=== PATIENT | female | born 2000 | race African-American/Black ===

== ENCOUNTER 2022-03-15 23:07 | Emergency (ER) | payer OTHER, SELFPAY ==
--- NOTE | ~2022-03-15 | CT_ITS ---
EXAMINATION: CT BRAIN W/O DATE: 03/16/2022 00:38 INDICATION: Left posterior headache TECHNIQUE: Computed tomography (CT) of the head was performed without intravenous contrast. The dose- length product was 605.33 mGy-cm. Automated exposure control and iterative reconstruction technique w ere employed. COMPARISON: No prior studies for comparison. FINDINGS: Normal brain parenchymal volume for age. Normal ortiz-white differentiation. No acute intrac ranial hemorrhage, infarction, mass or mass effect. No ventriculomegaly or midline shift. Midline sagittal images demonstrate a normal corpus callosum, c raniovertebral junction and sella turcica. Basilar cisterns are patent. Paranasal sinuses and mastoids are pneumatized. No depressed skull fractures. IMPRESSION: 1. No acute intracranial abnormality. Reviewed, dictated and finalized at location A.
[2022-03-15 23:09] VITALS: BP 124/88; PULSE 85; RESP 14; TEMP 36.3; O2SAT 100
[2022-03-15 23:35] VITALS: BP 114/87; O2SAT 100
[2022-03-15 23:36] VITALS: O2SAT 100
[2022-03-15 23:45] VITALS: O2SAT 100
[2022-03-15 23:46] VITALS: BP 107/78; O2SAT 100
[2022-03-15 23:47] VITALS: O2SAT 100
--- NOTE | 2022-03-16 00:02 | ED.HA ---
HPI - Headache General Chief Complaint: Headache Stated Complaint: headache Time Seen by Provider: 03/15/22 23:28 Source: patient Mode of arrival: ambulatory Limitations: no limitations History of Present Illness HPI Narrative: Patient is a 21 y/o female who presents to the ED with c/o headaches. Patient reports having intermittent headaches behind her eyes and on her left sided head for the past couple weeks. She states the pain typically occurs any time she eats or drinks anything, after which she feels a strange cold sensation to her head. She also describes it as feeling underwater. The pain will persist intermittently after eating or drinking, but she states she does not think she would experience pain at all if she went w/o eating or drinking. No other known triggers. She has not taken anything for the pain over the last couple weeks. Denies vision changes, neck pain, fever, dizziness, lightheadedness, weakness, nausea, vomiting, difficulty swallowing, dental pain, otalgia, tinnitus, photophobia, phonophobia. Patient does have a Hx of migraines but states this feels different. Related Data Allergies Allergy/AdvReac Type Severity Reaction Status Date / Time No Known Allergies Allergy Verified 03/15/22 23:36 Review of Systems Review of Systems: CONSTITUTIONAL: Denies fever, chills, or sweats. EYES: Denies photophobia, visual changes. ENT: Denies phonophobia, rhinorrhea, congestion, sore throat, tinnitus, dental pain, or otalgia. CARDIOVASCULAR: Denies chest pain. RESPIRATORY: Denies cough or dyspnea. GASTROINTESTINAL: Denies abdominal pain, nausea, vomiting, or diarrhea. MUSCULOSKELETAL: Denies neck pain. NEUROLOGIC: Reports intermittent headaches. Denies dizziness, lightheadedness, numbness, or weakness. All systems reviewed & are unremarkable except as noted in HPI and below PMFSH Past Medical History Medical History (Updated 03/16/22 @ 01:46 by Melba Dumas PA-C) No pertinent past medical history Surgical History Surgical History (Updated 03/16/22 @ 01:42 by Melba Dumas PA-C) No pertinent past surgical history Social History Social History (Updated 03/16/22 @ 01:42 by Melba Dumas PA-C) Smoking status: Never smoker Exam Narrative: GENERAL: Well appearing, thin, non-toxic, in no acute distress. HEAD: Normocephalic, atraumatic. EYES: PERRL/EOMI, conjunctivae clear bilaterally. No nystagmus. NOSE: Normal, no drainage. EARS: TMS clear, with good light reflex. No erythema or bulging. THROAT: Pharynx clear, no exudate. MMs moist. No focal abscess, gum swelling, redness. NECK: Supple. No adenopathy, no masses. No meningeal signs. Full nonpainful range of motion. RESPIRATORY: Airway patent, respirations nonlabored. Clear to auscultation bilaterally, no rales, rhonchi, wheezing. CARDIOVASCULAR: Regular rate and rhythm without murmurs, rubs, or gallops. Radial pulses 2+ and equal bilaterally. MUSCULOSKELETAL: Moves all extremities. Strength/ROM intact without gross deformities. SKIN: Warm, dry, normal color. No rashes. NEURO: A&O X3. Speech clear. Cranial nerves II-XII grossly intact. Steady gait. No ataxic movements. Strength 5 out of 5 in upper and lower extremities bilaterally. Equal engine assembler strength bilaterally. PSYCHIATRIC: Appropriate mood and affect. Normal interaction. Course Vital Signs Vital signs: Vital Signs Temperature 97.3 F L 03/15/22 23:09 Pulse Rate 85 03/15/22 23:09 Respiratory Rate 14 03/15/22 23:09 Blood Pressure 124/88 03/15/22 23:09 Pulse Oximetry 100 03/15/22 23:09 Oxygen Delivery Room Air 03/15/22 23:09 Temperature 97.3 F L 03/15/22 23:09 Pulse Rate 85 03/15/22 23:09 Respiratory Rate 14 03/15/22 23:09 Blood Pressure 107/78 03/15/22 23:46 Pulse Oximetry 100 03/16/22 01:15 Oxygen Delivery Room Air 03/15/22 23:09 MDM - Headache MDM Narrative Medical decision making narrative: Patient presented to ED with report o
[2022-03-16 00:37] VITALS: O2SAT 100
[2022-03-16 00:45] VITALS: O2SAT 100
[2022-03-16 01:11] VITALS: O2SAT 100
[2022-03-16 01:15] VITALS: O2SAT 100
[2022-03-16] MEDS: IBUPROFEN 600 MG TABLET PO (01:58)
[2022-03-16 02:03] VITALS: BP 106/65; PULSE 66; RESP 18; O2SAT 100
== END 2022-03-16 02:03 | disposition home or self-care (01) ==
PROVIDERS: Emergency Provider Family Medicine
DX: R51.9 Headache, unspecified (principal)
CPT/HCPCS: 70450; 99284; A9270

== ENCOUNTER 2022-06-25 09:18 | Emergency (ER) | payer OTHER, SELFPAY ==
[2022-06-25 09:25] VITALS: BP 117/93; PULSE 88; RESP 16; TEMP 36.8; O2SAT 100
--- NOTE | 2022-06-25 09:46 | ED.PSYCH ---
HPI - Psych General Chief Complaint: Psychiatric Symptoms Stated Complaint: suicidal ideation Time Seen by Provider: 06/25/22 09:22 Source: patient Mode of arrival: ambulatory Limitations: no limitations History of Present Illness HPI Narrative: This is a 22-year-old female that presents to the emergency department for thoughts of self-harm. Reports she has been struggling over the last couple of months. Reports she has a lot of stressful things going on currently. She does not wish to elaborate on these at this time. Reports it has been too much to deal with. She thought about cutting her wrist this morning and was planning on acting on it which prompted her to be seen. She does have history of cutting several years ago. She is not on any medications for depression or anxiety. She has never been hospitalized in a psychiatric facility. She does not have a therapist, psychiatrist or psychologist. Reports she tries to meditate. She does report she has a good support system. Denies homicidal ideations. Related Data Allergies Allergy/AdvReac Type Severity Reaction Status Date / Time No Known Allergies Allergy Verified 06/25/22 09:18 Review of Systems Review of Systems: CONSTITUTIONAL: Denies fever PSYCHIATRIC: Reports depression. All systems reviewed & are unremarkable except as noted in HPI and below PMFSH Past Medical History Medical History (Updated 06/25/22 @ 13:31 by aHnnah Alexander PA-C) No pertinent past medical history Surgical History Surgical History (Updated 03/16/22 @ 01:42 by Melba Dumas PA-C) No pertinent past surgical history Social History Social History (Updated 06/25/22 @ 13:30 by Hannah Alexander PA-C) Smoking status: Never smoker Substance use: current Substance use type: marijuana Exam Narrative: GENERAL: Well-appearing, well-nourished, and in no acute distress. HEAD: Normocephalic, atraumatic. EYES: EOMI. CHEST: No respiratory distress. HEART: Regular rate EXTREMITIES: Normal range of motion. No edema. SKIN: Warm, dry, no rash. NEURO: No focal deficits. Alert and oriented x3. PSYCH: Tearful. Depressed mood and affect Course Course Emergency Course: Patient is medically cleared for evaluation by crisis. She was updated on workup, resting comfortably Patient reports she is anxious. I have ordered a dose of Ativan for her Patient accepted at [place] [facility] Consultations Consultation #1: Crisis has evaluated patient and will be voluntarily placing her Date: 06/25/22 Time: 13:28 Vital Signs Vital signs: Vital Signs Temperature 98.2 F 06/25/22 09:25 Pulse Rate 88 06/25/22 09:25 Respiratory Rate 16 06/25/22 09:25 Blood Pressure 117/93 H 06/25/22 09:25 Pulse Oximetry 100 06/25/22 09:25 Oxygen Delivery Room Air 06/25/22 09:25 Temperature 98.2 F 06/25/22 09:25 Pulse Rate 62 06/25/22 19:06 Respiratory Rate 16 06/25/22 09:25 Blood Pressure 105/75 06/25/22 19:06 Pulse Oximetry 98 06/25/22 19:06 Oxygen Delivery Room Air 06/25/22 09:25 MDM - Psych MDM Narrative Medical decision making narrative: Patient presents emergency department for thoughts of self-harm. Does report previous history of cutting. Reports history of depression and anxiety. Reports she has had a lot of stress lately in her life. She is not currently on any medications for depression or anxiety. She does not see a counselor or psychologist. Tearful upon arrival, in no acute distress. She has been calm and cooperative. Her vitals are stable. CBC without concerning findings. Metabolic panel with mild hypokalemia. Patient's magnesium is normal. Her potassium was replaced in the ER. UA without evidence of infection, appears to be a contaminated catch. Alcohol level is negative. Urine drug screen positive for cannabinoids. Patient was updated on work-up. Patient was cleared for evaluation by crisis. Patient will be voluntarily admitted. A
--- NOTE | 2022-06-25 10:14 | ECG_ITS ---
Measurements Intervals [place] Rate: 66 P: 61 AR: 138 QRS: 8 QRSD: 103 T: 27 QT: 396 QTc: 417 Interpretive Statements SINUS RHYTHM WITH SINUS ARRHYTHMIA INCOMPLETE RIGHT BUNDLE BRANCH BLOCK BASELINE ARTIFACT- I, II, III, V3 BORDERLINE ECG NO PREVIOUS ECG AVAILABLE FOR COMPARISON Electronically Signed On 06-25-2022 11:23:06 [employer] by Remi Moraes D.O.
[2022-06-25 10:28] LABS: Basophils Percent Auto 0.4 % (0.2-1.2); Eosinophils Absolute Auto 0.2 K/mm3 (0-0.3); Eosinophils Percent Auto 3.3 % (0-4.4); Hematocrit 39.4 % (37.0-47.0); Hemoglobin 13.2 g/dL (12.0-15.0); Immature Granulocyte Absolute 0.01 K/mm3 (0.00-0.031); Immature Granulocyte Percent A 0.2 % (0-0.5); Lymphocytes Percent Auto 41.3 % (18.3-44.2); Mean Corpuscular HGB Conc 33.5 g/dl (32-36); Mean Corpuscular Hemoglobin 29.9 pg (26-34); Mean Corpuscular Volume 89.3 fl (80-100); Mean Platelet Volume 9.4 fl (7.4-10.4); Monocytes Absolute Auto 0.5 K/mm3 (0.1-0.6); Monocytes Percent Auto 10.2 % (2.6-8.5); Neutrophils Absolute Auto 2.3 K/mm3 (1.3-6.7); Neutrophils Percent Auto 44.6 % (45.5-73.1); Platelet Count Result 221 k/mm3 (150-375); Red Blood Count 4.41 M/mm3 (4.2-5.4); Red Cell Distribution Width 11.9 % (11.5-14.5); White Blood Count 5.1 K/mm3 (4.5-10.0)
[2022-06-25 10:33] LABS: Appearance Urine Slightly Cloudy (Clear); Bilirubin Urine 1+ (Negative); Blood Urine Negative (Negative); Color Urine Yellow (Yellow); Glucose Urine UA Negative (Negative); Ketones Urine Trace mg/dL (Negative); Leukocyte Esterase Ur Negative LEU/UL (Negative); Nitrate Urine Negative (Negative); Protein Urine 2+ mg/dL (Negative); Specific Grav Ur >= 1.030 (1.001-1.035); Urobilinogen Urine 0.2 mg/dL (<2.0); pH Urine 5.5 (5.0-9.0)
[2022-06-25 10:38] LABS: Mucus Urine Heavy /lpf; Squamous Epithelial Cell Urine Many /hpf (Few)
[2022-06-25 10:39] LABS: Add Urine Microscopic? YES
[2022-06-25 10:39] LABS: Acetaminophen < 10 ug/mL (10-30); Salicylate < 1.0 mg/dL (2-20)
[2022-06-25 10:40] LABS: Alanine Aminotransferase 15 U/L (6-35); Albumin Level 4.8 g/dL (3.5-5.1); Alkaline Phosphatase 71 U/L (38-126); Anion Gap 8 mmol/L (8-16); Aspartate Amino Transferase 21 U/L (14-36); Bilirubin,Total 0.7 mg/dL (0.2-1.3); Blood Urea Nitrogen 11 mg/dL (7-17); Calcium 8.8 mg/dL (8.4-10.2); Carbon Dioxide 24 mmol/L (22-30); Chloride 104 mmol/L (98-107); Estimated CRCL calculation 92 ml/min; Estimated Glomerular Filt Rate > 60; Glucose 121 mg/dL (65-110); Potassium 3.2 mmol/L (3.4-5.0); Sodium 136 mmol/L (137-145)
[2022-06-25 10:41] LABS: Ethanol < 10 mg/dL (<10)
[2022-06-25 10:58] LABS: Amphetamine Screen Urine Negative (Negative); Barbiturate Screen Urine Negative (Negative); Benzodiazepines Screen Urine Negative (Negative); Cannabinoid Screen Urine Positive (Negative); Cocaine Screen Urine Negative (Negative); Methadone Screen Urine Negative (Negative); Opiate Screen Urine Negative (Negative); Phencyclidine Screen Urine Negative (Negative)
[2022-06-25] MEDS: POTASSIUM CHLORIDE 20 MEQ TABLET 40 MEQ PO (11:02)
[2022-06-25 11:04] LABS: Influenza A QL RT-PCR Negative (Negative); Influenza B QL RT-PCR Negative (Negative); SARS-CoV-2 RNA PCR Negative
[2022-06-25 11:51] LABS: Magnesium 2.1 mg/dL (1.6-2.3)
--- NOTE | 2022-06-25 12:56 | PC.NURSE ---
Crisis at bedside for evaluation
[2022-06-25 14:50] VITALS: BP 134/87; PULSE 68; O2SAT 100
--- NOTE | 2022-06-25 15:25 | PC.NURSE ---
1207 Pt medically cleared per Genove[facility] ABRAHAM
--- NOTE | 2022-06-25 15:33 | PC.NURSE ---
[facility] called, spoke with patient, and requested chart to be faxed. Chart faxed by this RN
[2022-06-25] MEDS: LORazepam (*CRX) 0.5 MG TABLET PO (15:48)
[2022-06-25 19:06] VITALS: BP 105/75; PULSE 62; O2SAT 98
[2022-06-25 21:25] VITALS: BP 119/75; PULSE 67; O2SAT 100
--- NOTE | 2022-06-26 01:01 | PC.NURSE ---
Called [facility] at 0000 and they gave 15 minute ETA at that time. Called EMS and new ETA is 0300.
--- NOTE | 2022-06-26 02:43 | PC.NURSE ---
Called pt's sister Dier and [facility] with update that pt is leaving this ER and is en route to [facility] now.
== END 2022-06-26 02:45 ==
PROVIDERS: Physician Assistant; Emergency Provider Emergency Medicine
DX: R45.851 Suicidal ideations (principal); E87.6 Hypokalemia
CPT/HCPCS: 36415; 80053; 80307; 81001; 81025; 83735; 84443; 85025; 87636; 93005; 99285; A9270

== ENCOUNTER 2022-08-28 14:05 | Outpatient (RCR) | payer OTHER, SELFPAY ==
[2022-08-28 14:31] LABS: Basophils Percent Auto 0.2 % (0.2-1.2); Eosinophils Absolute Auto 0.1 K/mm3 (0-0.3); Eosinophils Percent Auto 1.7 % (0-4.4); Hematocrit 35.4 % (37.0-47.0); Hemoglobin 12.3 g/dL (12.0-15.0); Immature Granulocyte Absolute 0.01 K/mm3 (0.00-0.031); Immature Granulocyte Percent A 0.2 % (0-0.5); Lymphocytes Absolute Auto 2.51 K/mm3 (0.9-3.2); Lymphocytes Percent Auto 41.4 % (18.3-44.2); Mean Corpuscular HGB Conc 34.7 g/dl (32-36); Mean Corpuscular Hemoglobin 29.9 pg (26-34); Mean Corpuscular Volume 86.1 fl (80-100); Mean Platelet Volume 8.9 fl (7.4-10.4); Monocytes Absolute Auto 0.3 K/mm3 (0.1-0.6); Monocytes Percent Auto 5.4 % (2.6-8.5); Neutrophils Absolute Auto 3.1 K/mm3 (1.3-6.7); Neutrophils Percent Auto 51.1 % (45.5-73.1); Platelet Count Result 231 k/mm3 (150-375); Red Blood Count 4.11 M/mm3 (4.2-5.4); Red Cell Distribution Width 12.2 % (11.5-14.5); White Blood Count 6.1 K/mm3 (4.5-10.0)
[2022-08-28 15:21] LABS: HIV 1/2 Ab P24 Ag Result Negative (Negative)
[2022-08-28 15:36] LABS: Hepatitis B Surface Antigen Negative (Negative)
[2022-08-28 16:56] LABS: Hepatitis B Surface Antigen 0.06 S/C; Rubella IgG Antibody > 110.0 IU/ML
[2022-08-29 15:09] LABS: Rapid Plasma Reagin Non-Reactive (NonReactive)
== END 2022-11-26 23:59 | disposition home or self-care (01) ==
LOC: ANHLAB 14:05
PROVIDERS: Visit Provider Student in an Organized Health Care Education/Training Program
DX: Z11.4 Encounter for screening for human immunodeficiency virus [HIV] (principal); N91.2 Amenorrhea, unspecified
CPT/HCPCS: 36415; 84702; 85025; 85660; 86592; 86644; 86695; 86696; 86703; 86747; 86762; 86787; 86850; 86900; 86901; 87086; 87340; G0432

== ENCOUNTER 2023-02-12 10:00 | Emergency (ER) | payer OTHER, SELFPAY ==
--- NOTE | ~2023-02-12 | XR_ITS ---
EXAMINATION: XR chest 2V DATE: 02/12/2023 10:22 INDICATION: Shortness of breath TECHNIQUE: PA and lateral views of the chest are obtained. COMPARISON: None available FINDINGS: The lungs are free of acute opacities. No pleural effusion or pneumothorax. The cardiomedia stinal silhouette is normal. The visualized bones and soft tissues are unremarkable. IMPRESSION: 1. No acute cardiopulmonary abnormality. Reviewed, dictated and finalized at location B.
--- NOTE | ~2023-02-12 | CT_ITS ---
EXAMINATION: CTA chest PE protocol DATE: 02/12/2023 12:04 INDICATION: Chest pain. Shortness of breath. TECHNIQUE: Computed tomography angiography (CTA) of the chest was performed with 100 mL Omnipaque-350 intravenous contrast timed to evaluate the pulmonary arteries. Coronal maximum intensity projection 3D-reconstructions were created by the technologist. Automated exposure control and iterative reconst ruction technique were employed. The dose-length product was 364.07 mGy-cm. COMPARISON: None. FINDINGS: The lungs demonstrate minimal atelectasis. No pleural effusion. The heart size is normal. N o pericardial effusion. There is no pulmonary embolus. There is thoracic levocurvature. IMPRESSION: 1. No pulmonary embolus. Reviewed, dictated and finalized at location A. IMPRESSION: 1. No pulmonary embolus.
--- NOTE | 2023-02-12 10:02 | ECG_ITS ---
Measurements Intervals [place] Rate: 73 P: 43 AK: 125 QRS: 7 QRSD: 96 T: 15 QT: 361 QTc: 399 Interpretive Statements SINUS RHYTHM INCOMPLETE RIGHT BUNDLE BRANCH BLOCK BORDERLINE ECG COMPARED TO ECG 06/25/2022 11:16:11 NO SIGNIFICANT CHANGES Electronically Signed On 02-12-2023 10:24:36 CDT by Remi Moraes D.O.
[2023-02-12 10:16] VITALS: BP 108/67; PULSE 86; RESP 17; TEMP 36.2; O2SAT 100
[2023-02-12 10:23] LABS: Basophils Percent Auto 0.2 % (0.2-1.2); Eosinophils Absolute Auto 0.1 K/mm3 (0-0.3); Eosinophils Percent Auto 1.5 % (0-4.4); Hematocrit 34.8 % (37.0-47.0); Hemoglobin 11.4 g/dL (12.0-15.0); Immature Granulocyte Absolute 0.05 K/mm3 (0.00-0.031); Immature Granulocyte Percent A 0.6 % (0-0.5); Lymphocytes Absolute Auto 2.43 K/mm3 (0.9-3.2); Lymphocytes Percent Auto 29.5 % (18.3-44.2); Mean Corpuscular HGB Conc 32.8 g/dl (32-36); Mean Corpuscular Hemoglobin 29.4 pg (26-34); Mean Corpuscular Volume 89.7 fl (80-100); Mean Platelet Volume 9.2 fl (7.4-10.4); Monocytes Absolute Auto 0.7 K/mm3 (0.1-0.6); Monocytes Percent Auto 8.1 % (2.6-8.5); Neutrophils Absolute Auto 4.9 K/mm3 (1.3-6.7); Neutrophils Percent Auto 60.1 % (45.5-73.1); Platelet Count Result 213 k/mm3 (150-375); Red Blood Count 3.88 M/mm3 (4.2-5.4); Red Cell Distribution Width 12.9 % (11.5-14.5); White Blood Count 8.2 K/mm3 (4.5-10.0)
[2023-02-12 10:35] LABS: Prothrombin Time 13.2 Seconds (11.1-14.7)
[2023-02-12 10:36] LABS: Partial Thromboplastin Time 27.8 SECONDS (22.3-36.8)
[2023-02-12 10:38] LABS: Alanine Aminotransferase 14 U/L (6-35); Albumin Level 3.4 g/dL (3.5-5.1); Alkaline Phosphatase 97 U/L (38-126); Anion Gap 6 mmol/L (8-16); Aspartate Amino Transferase 35 U/L (14-36); Bilirubin,Total 0.3 mg/dL (0.2-1.3); Blood Urea Nitrogen 5 mg/dL (7-17); Calcium 8.4 mg/dL (8.4-10.2); Carbon Dioxide 22 mmol/L (22-30); Chloride 106 mmol/L (98-107); Estimated CRCL calculation 133 ml/min; Estimated Glomerular Filt Rate > 60; Glucose 78 mg/dL (65-110); Lipase 57 U/L (23-300); Potassium 3.7 mmol/L (3.4-5.0); Sodium 134 mmol/L (137-145)
[2023-02-12 10:50] LABS: Troponin I < 0.012 ng/mL (0.000-0.034)
[2023-02-12 12:04] VITALS: BP 115/76; PULSE 83; RESP 16; O2SAT 100
[2023-02-12 12:45] VITALS: BP 112/81; PULSE 75; RESP 13; O2SAT 100
--- NOTE | 2023-02-12 12:54 | ED.CHESTPAIN ---
HPI - Chest Pain General Chief Complaint: Chest Pain Stated Complaint: shortness of breath/cp Time Seen by Provider: 02/12/23 11:17 History of Present Illness HPI narrative: This is a 22-year-old female, 7 months , presents emergency department complaining of dull and intermittently sharp anterior chest wall pain for the past week. Patient denies any known traumatic injuries or obvious cause. Pain is worse with deep breathing. She denies lightheadedness, difficulty breathing or loss of consciousness. Related Data Allergies Allergy/AdvReac Type Severity Reaction Status Date / Time No Known Allergies Allergy Verified 02/12/23 11:30 Review of Systems Review of Systems: CONSTITUTIONAL: Denies fever, chills, or sweats. CARDIOVASCULAR: Chest pain denies palpitations, or edema. RESPIRATORY: Denies cough or dyspnea. GASTROINTESTINAL: Denies abdominal pain, nausea, vomiting, or diarrhea. GENITOURINARY: Denies dysuria or hematuria. SKIN: Denies rash or itching. MUSCULOSKELETAL: Denies back pain, joint pain, or myalgia. NEUROLOGIC: Denies headache, numbness, dizziness, or weakness. PSYCHIATRIC: Denies anxiety or depression. [facility] Past Medical History Medical History HSV-2 (herpes simplex virus 2) infection Surgical History Surgical History Hx of hernia repair Family History Family History Other Diabetes mellitus Social History Social History Smoking status: Never smoker Alcohol intake: never Substance use: former Substance use type: marijuana Last use: 08/2022 Lack of Transportation: No Lack of Food: Never True Current Housing: I Have Housing Concerned About Future Housing: No Difficulty Paying Gas/Electric Bills: No Difficulty Paying for Meds: No Currently Unemployed: No Education: High School Diploma/GED Difficulty w/ Childcare or Family Care: No Living arrangements: alone Occupation/Education: occupation 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 HEAD: Normocephalic, atraumatic. EYES: PERRLA and EOMI. ENT: Nares clear, no rhinorrhea or epistaxis. Mucous membranes moist. Oropharynx without tonsillar hypertrophy exudate or other lesions. CHEST: Clear to auscultation. No respiratory distress. No wheezes rales or rhonchi. Tender to palpation over the anterior chest wall HEART: Regular rate and rhythm. No murmur heard. Normal peripheral pulses. ABDOMEN: Soft, nontender, nondistended, normal active bowel sounds. EXTREMITIES: Normal range of motion. No edema. SKIN: Warm, dry, no rash. NEURO: Alert and oriented x3. Moving all 4 limbs purposefully. PSYCH: Normal mood and affect. Course Course Emergency Course: 12:40 - EKG not concerning for ischemia. Troponin negative. Chemistries demonstrate mild hyponatremia with sodium 134 but otherwise unremarkable. CBC demonstrates mild anemia with hemoglobin of 11.4 with a baseline of 12.3. Coags within normal limits. CT PE study negative for PE. Chest x-ray unremarkable. I suspect patient's pain is musculoskeletal in nature. Will discharge with recommendations for Tylenol as needed and follow-up with her OB (she has an appointment tomorrow). Return emerged precautions including signs/symptoms of ACS and respiratory distress. The patient voiced understanding and is comfortable with the plan. All questions answered to her satisfaction. Vital Signs Vital signs: Vital Signs Temperature 97.1 F L 02/12/23 10:16 Pulse Rate 86 02/12/23 10:16 Respiratory Rate 17
== END 2023-02-12 13:22 | disposition home or self-care (01) ==
PROVIDERS: Emergency Provider Preventive Medicine Aerospace Medicine; PCP Obstetrics & Gynecology
DX: O26.893 Other specified pregnancy related conditions, third trimester (principal); R07.89 Other chest pain; Z3A.00 Weeks of gestation of pregnancy not specified; I45.10 Unspecified right bundle-branch block
CPT/HCPCS: 36415; 71046; 71275; 80053; 83690; 84484; 85025; 85610; 85730; 93005; 99284; Q9967

== ENCOUNTER 2023-02-19 09:31 | Observation (INO) | payer OTHER, SELFPAY ==
[2023-02-19] VITALS (45 sets, daily range): BP systolic 96–131; BP diastolic 47–93; PULSE 81–113; RESP 16–18; TEMP 36.3–36.5; O2SAT 99–100; BMI 21.8
--- NOTE | 2023-02-19 10:05 | OBADM ---
This patient, Margo Verma, admitted to the OB room 116 at 0931 for observation for contractions. Patient/family oriented to hospital policies and general routines including ID bracelet, bed and alarms, visiting hours, pain management, procedures, bathroom and other care routines, personal items, smoking policy, room service/diet, and visiting hours. Patient/Family are encouraged to report perceived risks to care and to ask questions if they do not understand what they are told or what they should do.
[2023-02-19 11:04] LABS: Appearance Urine Clear (Clear); Bacteria Urine None Seen /hpf; Bilirubin Urine Negative (Negative); Blood Urine Trace (Negative); Color Urine Yellow (Yellow); Glucose Urine UA Negative (Negative); Ketones Urine Negative (Negative); Leukocyte Esterase Ur Negative LEU/UL (Negative); Nitrate Urine Negative (Negative); Non Pathogenic Casts 0-2; Protein Urine Negative (Negative); RBC Urine 0-2 /hpf (0-2); Specific Grav Ur 1.022 (1.001-1.035); Squamous Epithelial Cell Urine Occasional /hpf (Few); WBC Urine 0-5 /hpf; pH Urine 7.5 (5.0-9.0)
[2023-02-19 11:06] LABS: Add Urine Microscopic? YES
[2023-02-19] MEDS: TERBUTALINE SULFATE 1 MG/ML VIAL 0.25 MG SUB-Q (11:15)
[2023-02-19] MEDS: LACTATED RINGERS 1,000 ML 999 ML IV CONT (11:29)
--- NOTE | 2023-02-19 12:40 | PM.IMHP ---
H&P: HPI History of Present Illness Date/Time: 02/19/23 12:40 Chief Complaint: contractions/spotting Narrative: Margo is a 22yo @ 29.6wks who presented to L&D w/ complaints of spotting and contractions after having intercourse yesterday. She was noted have to have light spotting when wiping. She was ana maria about every 5 minutes and was 1//-2 at 1050. She was given and IV fluid bolus and terb and her contractions spaced out for a while. The contractions then picked up and she began feeling more pressure and was found to be 3cm dilated at 1240. Her is complicated by: - HSV; will need PPX at 36wks. - labor Review of Systems Constitutional: Constitutional: Denies chills, Denies fever(s) and Denies headache(s) Eyes: Eyes: Denies change in vision ENT: Denies headache(s) Cardiovascular: Cardiovascular: Denies chest pain and Denies dyspnea Respiratory: Respiratory: Denies dyspnea Genitourinary: Genitourinary: Denies abnormal vaginal bleeding and Denies vaginal discharge Neurologic: Denies headache(s) Psychiatric: Psychiatric: Denies anxiety and Denies depression PMFSH Past Medical History Medical History HSV-2 (herpes simplex virus 2) infection Surgical History Surgical History Hx of hernia repair Family History Family History Other Diabetes mellitus Social History Social History Smoking status: Never smoker Alcohol intake: never Substance use: former Substance use type: marijuana Last use: 08/2022 Lack of Transportation: No Lack of Food: Never True Current Housing: I Have Housing Concerned About Future Housing: No Difficulty Paying Gas/Electric Bills: No Difficulty Paying for Meds: No Currently Unemployed: No Education: High School Diploma/GED Difficulty w/ Childcare or Family Care: No Living arrangements: alone Occupation/Education: occupation 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 Gender identity (if verbalized by the patient): Female Sexual Orientation (if Verbalized by the Patient): Bisexual Meds Home Medications and Allergies Home Medications Medication Instructions Recorded Confirmed Type vitamins-iron fumarate 65 1 tablet PO DAILY #90 tabs 01/20/23 02/19/23 Rx mg iron-folic acid 1 mg tablet Allergies Allergy/AdvReac Type Severity Reaction Status Date / Time No Known Allergies Allergy Verified 02/13/23 15:13 Vital Signs Vital Signs - 24 hr 02/19/23 10:04 02/19/23 10:04 02/19/23 10:15 Pulse Rate 86 89 Blood Pressure 111/68 114/85 Oxygen Delivery Room Air 02/19/23 10:22 02/19/23 11:01 02/19/23 11:12 Pulse Rate 81 81 86 Blood Pressure 118/73 110/73 110/76 Oxygen Delivery 02/19/23 11:15 02/19/23 11:30 02/19/23 11:45 Pulse Rate 85 98 89 Blood Pressure 114/77 114/73 123/77 Oxygen Delivery 02/19/23 12:01 02/19/23 12:15 02/19/23 12:30 Pulse Rate 95 96 99 Blood Pressure 104/61 112/65 96/47 L Oxygen Delivery Exam Const: General: cooperative, healthy appearing and in distress (with contractions) mild Nutritional Appearance: well nourished Orientation/consciousness: patient oriented x3 Resp: Effort & Inspection: normal respiratory effort Cardio: Rate: regular rate GI: GI Palp: No abdominal tenderness : Other: FHT's: 150's/ mod chance/ + accels/ no decels - cat 1 TOCO: ctxs q5min Cervix: 3/70/-2 Membranes: intact Skin: General skin exam: normal color Neuro: General: patient oriented x3 Extrem: General: normal to inspection Psych: Appearance: grossly normal Affect: normal affect Attitude: cooperative H&P: Results Labs Labs: Urine 02/19/23 Range/Units 10:34 Urine Color Rachid
[2023-02-19] MEDS: LACTATED RINGERS 1,000 ML 75 ML IV CONT (12:59)
[2023-02-19] MEDS: ONDANSETRON INJ 4 MG/2 ML VIAL IV PUSH (13:10)
[2023-02-19] MEDS: BETAMETHASONE SOD PHOS/ACETATE 30 MG/5 ML VIAL 12 MG IM (13:12)
[2023-02-19] MEDS: AMPICILLIN 2 GM/NS 100 ML 2 GM/100 ML BAG IVPB (13:17)
[2023-02-19] MEDS: MAGNESIUM SULF 20GM/WATER500ML 500 ML 50 MG IV CONT (13:35)
--- NOTE | 2023-02-20 12:02 | PM.TDS ---
Transfer Discharge Sum: Prov Provider Date of admission: 02/19/23 09:31 Primary care physician: Cathi Griffin MD Admitting clinician: Cathi Griffin MD Attending physician on admission: Cathi Griffin Attending physician on discharge: Cathi Griffin Anticipated date of transfer: 02/19/23 DS: Admitting Diagnosis Discharge Date 02/19/23 Admitting Diagnosis Contractions IUP @ 29.6wks Vaginal spotting DS: Discharge Diagnosis Discharge Diagnosis (1) labor in third trimester: Qualifiers: labor delivery status: without delivery Qualified Code(s): O60.03 - labor without delivery, third trimester Code(s): O60.03 - labor without delivery, third trimester Status: Acute Transfer Discharge Sum: Med Medications Active and Home Medications: Home Medications vitamins-iron fumarate 65 mg iron-folic acid 1 mg tablet 1 tablet PO DAILY #90 tabs 01/20/23 [Rx Confirmed 02/19/23] Transfer Discharge Sum: Hosp Hospital Course Hospital course: Margo is a 22yo @ 29.6wks who presented to L&D w/ complaints of spotting and contractions after having intercourse yesterday. She was noted have to have light spotting when wiping. She was ana maria about every 5 minutes and was 1/70/-2 at 1050. She was given and IV fluid bolus and terb and her contractions spaced out for a while. The contractions then picked up and she began feeling more pressure and was found to be 3cm dilated at 1240. She was given betamethasone 12mg IM, magnesium sulfate 6g IV, and ampicillin 2g. [facility] was contacted for transfer due to PTL in early gestation and accepted the transfer. Maternal transport picked her up. Time Spent with Patient Time attestation: Total time spent providing and/or coordinating transfer services: Exam Const: General: cooperative, healthy appearing and in distress (with contractions) mild Nutritional Appearance: well nourished Orientation/consciousness: patient oriented x3 Resp: Effort & Inspection: normal respiratory effort Cardio: Rate: regular rate GI: GI Palp: No abdominal tenderness : Other: FHT's: 150's/ mod chance/ + accels/ no decels - cat 1 TOCO: ctxs q5min Cervix: 3/70/-2 Membranes: intact Skin: General skin exam: normal color Neuro: General: patient oriented x3 Extrem: General: normal to inspection Psych: Appearance: grossly normal Affect: normal affect Attitude: cooperative
== END 2023-02-19 14:43 ==
PROVIDERS: Admitting Provider Obstetrics & Gynecology; PCP Obstetrics & Gynecology; Visit Provider Obstetrics & Gynecology
DX: O26.859 Spotting complicating pregnancy, unspecified trimester (principal); O60.03 Preterm labor without delivery, third trimester; Z3A.29 29 weeks gestation of pregnancy
CPT/HCPCS: 36415; 81001; 96361; 96365; 96366; 96372; 96375; G0378; G0379; J0290; J0702; J2405; J3105; J3475; J7120

== ENCOUNTER 2023-03-18 12:13 | Outpatient (CLI) | payer OTHER, SELFPAY ==
[2023-03-18 13:15] LABS: HIV 1/2 Ab P24 Ag Result Negative (Negative)
== END 2023-03-18 12:14 | disposition home or self-care (01) ==
LOC: ANHLAB 12:15
PROVIDERS: Visit Provider Obstetrics & Gynecology
DX: Z34.90 Encounter for supervision of normal pregnancy, unspecified, unspecified trimester (principal); Z3A.00 Weeks of gestation of pregnancy not specified
CPT/HCPCS: 36415; 86703; G0432

== ENCOUNTER 2023-03-21 18:42 | Observation (INO) | payer OTHER, SELFPAY ==
[2023-03-21] VITALS (53 sets, daily range): BP systolic 102–123; BP diastolic 41–82; PULSE 73–169; O2SAT 98–100; BMI 23.1
--- NOTE | 2023-03-21 19:28 | OBADM ---
This patient, Margo Verma, admitted to the OB room OB Post 115 for observation. Patient/family oriented to hospital policies and general routines including ID bracelet, bed and alarms, visiting hours, pain management, procedures, bathroom and other care routines, personal items, smoking policy, room service/diet, and visiting hours. Patient/Family are encouraged to report perceived risks to care and to ask questions if they do not understand what they are told or what they should do.
[2023-03-21 19:34] LABS: Appearance Urine Clear (Clear); Bacteria Urine None Seen /hpf; Bilirubin Urine Negative (Negative); Blood Urine Negative (Negative); Color Urine Yellow (Yellow); Glucose Urine UA Negative (Negative); Ketones Urine 3+ mg/dL (Negative); Leukocyte Esterase Ur Trace LEU/UL (Negative); Nitrate Urine Negative (Negative); Non Pathogenic Casts 0-2; Protein Urine Negative (Negative); RBC Urine 0-2 /hpf (0-2); Specific Grav Ur 1.017 (1.001-1.035); Squamous Epithelial Cell Urine Occasional /hpf (Few); WBC Urine 0-5 /hpf
[2023-03-21 19:44] LABS: Add Urine Microscopic? YES
[2023-03-21] MEDS: LACTATED RINGERS 1,000 ML 999 ML IV CONT (20:39)
[2023-03-21] MEDS: TERBUTALINE SULFATE 1 MG/ML VIAL 0.25 MG SUB-Q (20:39)
[2023-03-22] VITALS (82 sets, daily range): BP systolic 91–122; BP diastolic 57–81; PULSE 66–124; RESP 18; TEMP 36.6; O2SAT 90–100
[2023-03-22] MEDS: NIFEdipine 10 MG CAPSULE 20 MG PO (07:00)
--- NOTE | 2023-03-22 11:01 | PM.OBTRLD ---
OB - Triage/Final Diagnosis Visit Information Date of evaluation: 03/21/23 Reason for evaluation: threatened labor Comments/Additional reasons for admission: I have assessed the risk for this patient, Margo Verma, and determined that she would benefit from observation care. Evaluation Cervical dilation (cm): 3 Cervical effacement (%): 70 station: -3 Laboratory results: Laboratory Tests 03/21/23 19:19 Urine Color Yellow Urine Appearance Clear Urine pH 7.0 Ur Specific [place] 1.017 Urine Protein Negative Urine Glucose (UA) Negative Urine Ketones 3+ H Ur Blood (Man) Negative Urine Nitrate Negative Urine Bilirubin Negative Urine Urobilinogen 1.0 Leukocyte Esterase Rfl Trace H Urine RBC 0-2 Urine WBC 0-5 Ur Squamous Epith Cells Occasional Urine Bacteria None seen Urine Casts 0-2 Vital signs: Vital Signs - 24 hr 03/21/23 19:03 03/21/23 19:16 03/21/23 19:31 Pulse Rate 90 100 78 Blood Pressure 112/73 106/73 105/68 Pulse Oximetry 03/21/23 19:46 03/21/23 20:01 03/21/23 20:16 Pulse Rate 80 86 87 Blood Pressure 115/65 105/69 110/74 Pulse Oximetry 03/21/23 20:31 03/21/23 20:39 03/21/23 20:44 Pulse Rate 90 Blood Pressure 123/77 Pulse Oximetry 100 100 03/21/23 20:47 03/21/23 20:49 03/21/23 20:54 Pulse Rate 88 Blood Pressure 110/70 Pulse Oximetry 100 100 03/21/23 20:59 03/21/23 21:01 03/21/23 21:04 Pulse Rate 102 H Blood Pressure 102/63 Pulse Oximetry 100 100 03/21/23 21:09 03/21/23 21:14 03/21/23 21:16 Pulse Rate 97 Blood Pressure 111/70 Pulse Oximetry 100 100 03/21/23 21:19 03/21/23 21:24 03/21/23 21:29 Pulse Rate Blood Pressure Pulse Oximetry 100 100 100 03/21/23 21:31 03/21/23 21:34 03/21/23 21:39 Pulse Rate 94 Blood Pressure 110/73 Pulse Oximetry 100 100 03/21/23 21:44 03/21/23 21:46 03/21/23 21:49 Pulse Rate 169 H Blood Pressure 106/82 Pulse Oximetry 100 100 03/21/23 21:54 03/21/23 21:59 03/21/23 22:01 Pulse Rate 89 Blood Pressure 115/75 Pulse Oximetry 100 100 03/21/23 22:17 03/21/23 22:22 03/21/23 22:27 Pulse Rate 97 Blood Pressure 107/41 L Pulse Oximetry 100 100 100 03/21/23 22:31 03/21/23 22:32 03/21/23 22:37 Pulse Rate 92 Blood Pressure 107/66 Pulse Oximetry 100 100 03/21/23 22:38 03/21/23 22:43 03/21/23 22:48 Pulse Rate Blood Pressure Pulse Oximetry 100 100 100 03/21/23 22:53 03/21/23 22:58 03/21/23 23:03 Pulse Rate Blood Pressure Pulse Oximetry 100 99 99 03/21/23 23:08 03/21/23 23:13 03/21/23 23:18 Pulse Rate Blood Pressure Pulse Oximetry 99 99 98 03/21/23 23:23 03/21/23 23:28 03/21/23 23:33 Pulse Rate Blood Pressure Pulse Oximetry 98 98 98 03/21/23 23:38 03/21/23 23:43 03/21/23 23:48 Pulse Rate Blood Pressure Pulse Oximetry 100 99 99 03/21/23 23:53 03/21/23 23:58 03/22/23 00:03 Pulse Rate Blood Pressure Pulse Oximetry 99 100 100 03/22/23 00:08 03/22/23 00:13 03/22/23 00:18 Pulse Rate Blood Pressure Pulse Oximetry 98 97 98 03/22/23 00:23 03/22/23 00:28 03/22/23 00:33 Pulse Rate Blood Pressure Pulse Oximetry 99 98 98 03/22/23 00:38 03/22/23 00:43 03/22/23 00:48 Pulse Rate Blood Pressure Pulse Oximetry 98 98 98 03/22/23 00:53 03/22/23 00:58 03/22/23 01:03 Pulse Rate Blood Pressure Pulse Oximetry 96 97 97 03/22/23 01:08 03/22/23 01:13 03/22/23 01:18 Pulse Rate Blood Pressure Pulse Oximetry 98 92 90 03/22/23 01:23 03/22/23 01:28 03/22/23 01:33 Pulse Rate Blood Pressure Pulse Oximetry 93 97 98 03/22/23 01:38 03/22/23 01:43 03/22/23 01:48 Pulse Rate Blood Pressure Pulse Oximetry 99 98 98 03/22/23 01:53 03/22/23 01:58 03/22/23 02:03 Pulse Rate Blood Pressure Pulse Oximetry 98 98 98 03/22/23 02:08 03/22/23 02:13 03/22/23 02:18 Pulse Rate Blood Pressure P
--- NOTE | 2023-03-22 11:41 | PC.NURSE ---
Pt waiting for her ride.
== END 2023-03-22 11:50 | disposition home or self-care (01) ==
PROVIDERS: Admitting Provider Student in an Organized Health Care Education/Training Program; Visit Provider Student in an Organized Health Care Education/Training Program
DX: O47.03 False labor before 37 completed weeks of gestation, third trimester (principal); Z3A.34 34 weeks gestation of pregnancy
CPT/HCPCS: 81001; 96372; A9270; G0378; G0379; J3105; J7120

== ENCOUNTER 2023-04-04 23:19 | Observation (INO) | payer OTHER, SELFPAY ==
[2023-04-04] MEDS: fentaNYL CITRATE INJ (*CRX) 100 MCG/2 ML VIAL 50 MCG IV PUSH (23:12)
[2023-04-04 23:28] VITALS: BMI 23.4
[2023-04-04 23:57] VITALS: BP 110/66; PULSE 67; TEMP 36.6
[2023-04-05 04:02] VITALS: BP 86/46; PULSE 69; TEMP 36.8
--- NOTE | 2023-04-15 08:40 | PM.OBTRLD ---
OB - Triage/Final Diagnosis Visit Information Reason for evaluation: threatened labor Comments/Additional reasons for admission: I have assessed the risk for this patient, Margo Verma, and determined that she would benefit from observation care.
== END 2023-04-05 05:40 | disposition home or self-care (01) ==
PROVIDERS: Admitting Provider Obstetrics & Gynecology Gynecology; Visit Provider Obstetrics & Gynecology Gynecology
DX: O47.00 False labor before 37 completed weeks of gestation, unspecified trimester (principal); Z3A.00 Weeks of gestation of pregnancy not specified
CPT/HCPCS: 96374; G0378; G0379; J3010

== ENCOUNTER 2023-04-12 10:23 | Inpatient (IN) | payer OTHER, SELFPAY ==
[2023-04-12] VITALS (166 sets, daily range): BP systolic 87–143; BP diastolic 28–111; PULSE 61–206; RESP 17–18; TEMP 36.9–37.7; O2SAT 75–100; BMI 24.5
[2023-04-12 10:52] LABS: Basophils Percent Auto 0.1 % (0.2-1.2); Eosinophils Percent Auto 0.2 % (0-4.4); Hemoglobin 11.1 g/dL (12.0-15.0); Immature Granulocyte Absolute 0.08 K/mm3 (0.00-0.031); Immature Granulocyte Percent A 0.6 % (0-0.5); Lymphocytes Absolute Auto 1.44 K/mm3 (0.9-3.2); Mean Corpuscular HGB Conc 33.6 g/dl (32-36); Mean Corpuscular Hemoglobin 28.9 pg (26-34); Mean Corpuscular Volume 85.9 fl (80-100); Mean Platelet Volume 9.6 fl (7.4-10.4); Monocytes Absolute Auto 1.1 K/mm3 (0.1-0.6); Monocytes Percent Auto 7.7 % (2.6-8.5); Neutrophils Absolute Auto 11.8 K/mm3 (1.3-6.7); Neutrophils Percent Auto 81.4 % (45.5-73.1); Platelet Count Result 225 k/mm3 (150-375); Red Blood Count 3.84 M/mm3 (4.2-5.4); Red Cell Distribution Width 12.9 % (11.5-14.5); White Blood Count 14.5 K/mm3 (4.5-10.0)
--- NOTE | 2023-04-12 11:02 | LDADM ---
This patient, Margo Verma, was admitted to Labor/Delivery/Recovery 106 on 04/12/23 at 10:23. Plans for labor, pain management and were discussed with patient. Patient/family oriented to hospital policies and general routines including ID bracelet, bed and alarms, visiting hours, pain management, procedures, bathroom and other care routines, personal items, smoking policy, room service/diet and guest tray routines, security routines, and visiting hours. Patient/Family are encouraged to report perceived risks to care and to ask questions if they do not understand what they are told or what they should do. See OBIX for further documentation.
--- NOTE | 2023-04-12 11:42 | WPDANESEPP ---
Anes - Eval Pre Procedure Procedure: labor pain managemnt Date/Time: 04/12/23 11:42 Surgeon: Donovan Preop Diagnosis: pain during labor Pre Op Diagnosis: LABOR Patient Data Age: 22 Gender: F Height: 1.63 m Weight: 65 kg Last Vital Signs Temp 99.4 F 04/12/23 11:08 Pulse 100 04/12/23 11:30 Resp 18 04/12/23 11:08 BP 122/88 04/12/23 11:30 Pulse Ox 96 04/12/23 11:39 O2 Del Method Room Air 04/12/23 11:01 Allergies Allergy/AdvReac Type Severity Reaction Status Date / Time No Known Allergies Allergy Verified 04/09/23 15:07 Home Medications Medication Instructions Recorded Confirmed Type vitamins-iron fumarate 65 1 tablet PO DAILY #90 tabs 01/20/23 04/09/23 Rx mg iron-folic acid 1 mg tablet nifedipine 10 mg capsule 10 mg PO Q12H #30 caps 03/24/23 04/12/23 Rx sertraline 25 mg tablet (Zoloft) 25 mg PO DAILY #90 tabs 04/02/23 04/09/23 Rx valacyclovir 500 mg tablet 500 mg PO Q12H #60 tabs 04/02/23 04/09/23 Rx (Valtrex) Laboratory Tests 04/12/23 10:46 WBC 14.5 H K/mm3 (4.5-10.0) RBC 3.84 L M/mm3 (4.2-5.4) Hgb 11.1 L g/dL (12.0-15.0) Hct 33.0 L % (37.0-47.0) MCV 85.9 fl (80-100) MCH 28.9 pg (26-34) MCHC 33.6 g/dl (32-36) RDW 12.9 % (11.5-14.5) Plt Count 225 k/mm3 (150-375) MPV 9.6 fl (7.4-10.4) Immature Gran % (Auto) 0.6 H % (0-0.5) Neut % (Auto) 81.4 H % (45.5-73.1) Lymph % (Auto) 10.0 L % (18.3-44.2) [place] % (Auto) 7.7 % (2.6-8.5) Eos % (Auto) 0.2 % (0-4.4) Baso % (Auto) 0.1 L % (0.2-1.2) Lymph # (Auto) 1.44 K/mm3 (0.9-3.2) [place] # (Auto) 1.1 H K/mm3 (0.1-0.6) Eos # (Auto) 0.0 K/mm3 (0-0.3) Baso # (Auto) 0.0 K/mm3 (0.0-0.1) Abs Immat Gran (auto) 0.08 H K/mm3 (0.00-0.031) Absolute Neuts (auto) 11.8 H K/mm3 (1.3-6.7) Absolute Nucleated RBC 0.0 K/mm3 (0.0-0.012) Nucleated RBC % 0.0 % (0.0-0.2) RPR Pending Patient hx anesthesia problems: none Family hx anesthesia problems: none Results Review: All pre-operative results and documents have been reviewed as part of the pre-operative evaluation. FOR[facility] Past Medical History Medical History HSV-2 (herpes simplex virus 2) infection Surgical History Surgical History Hx of hernia repair Family History Family History Other Diabetes mellitus Social History Social History Smoking status: Never smoker Smokeless tobacco user: other Second hand tobacco smoke exposure: No Alcohol intake: never Substance use: former Substance use type: marijuana Last use: 08/2022 Lack of Transportation: No Lack of Food: Never True Current Housing: I Have Housing Concerned About Future Housing: No Difficulty Paying Gas/Electric Bills: No Difficulty Paying for Meds: No Currently Unemployed: No Education: High School Diploma/GED Difficulty w/ Childcare or Family Care: No Living arrangements: alone Occupation/Education: occupation 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
--- NOTE | 2023-04-12 16:56 | WPDHPUPDATE1 ---
History and Physical Update Update Date/Time: 04/12/23 16:56 History and Physical has been reviewed, including an updated exam of the patient. There are NO changes in the patient's condition. Risks, benefits, and alternatives have been discussed and questions answered. Patient agrees to proceed with procedure.
--- NOTE | 2023-04-12 16:57 | WPDOBADMIT ---
Obstetrics - Admit Note Admission Note: record reviewed. No pertinent additions to the history and/or any subsequent changes in the physical findings that are not consistent with the expected course of the were found. Additions to the history and/or subsequent changes in the physical findings follow. None.
[2023-04-12] MEDS: OXYTOCIN 30 UNITS/NS 500 ML 30 UNITS/500 ML BAG 125 UNITS IV CONT ×2 (16:59→19:15)
[2023-04-12] MEDS: LACTATED RINGERS 1,000 ML 125 ML IV CONT (18:07)
[2023-04-12] MEDS: OXYTOCIN 30 UNITS/NS 500 ML 30 UNITS/500 ML BAG 999 UNITS IV CONT (18:55)
--- NOTE | 2023-04-12 19:06 | P.PCNOB_ITS ---
OB - Vaginal Delivery Note Procedure Delivery date: 04/12/23 Induction method: None Delivery augmentation: Rupture of Membranes and Pitocin Delivery monitor: External FHT and External Uterine Route of delivery: Episiotomy description: None Laceration Description: Periurethral Specimen: No Quantitative Blood Loss (ml): 300 Anesthesia type: Epidural Disposition: Floor Complications: No immediate complications Narrative: Patient prepped and draped in usual manner for this procedure. Maternal expulsive readily delivered vertex over perineum. Rest of baby was delivered without difficulty, cord clamped cut, placenta delivered spontaneously. Cervix vagina vulva were inspected with small periurethral tear which rendered hemostatic pressure. No significant bleeding, no other issues and immediate postoperative condition of mother and baby both excellent. [place] Baby Weeks of gestation at delivery: 37 Infant gender: Female presentation: vertex position: Right Occiput Anterior Placenta delivery description: Spontaneous Cord Vessel Description: 3 Vessels AMG Delivery Billing Delivery Delivery: Delivery Charge
--- NOTE | 2023-04-12 21:16 | PC.NURSE ---
Patient transferred to post room # 281 via ( W/C ). Support person present. Oriented to unit, room, information board, rooming in, admission packet and security measures. Patient verbalizes understanding.
[2023-04-12] MEDS: IBUPROFEN 600 MG TABLET (22:10)
[2023-04-13 02:06] VITALS: BP 113/67; PULSE 75; RESP 18; TEMP 36.6; O2SAT 100
[2023-04-13 07:01] LABS: Hematocrit 29.9 % (37.0-47.0); Hemoglobin 9.7 g/dL (12.0-15.0)
[2023-04-13] MEDS: BENZOCAINE 20% AER SPR (*SP) 56 GM CAN 1 SPRAY TOPICAL (07:21)
[2023-04-13] MEDS: WITCH HAZEL 40 PADS 1 PAD TOPICAL (07:21)
--- NOTE | 2023-04-13 07:43 | P.DS_ITS ---
DS: Admitting Diagnosis Discharge Date 04/14/2023 Admitting Diagnosis DS: Discharge Diagnosis Discharge Diagnosis (1) , delivered: Code(s): O80 - Encounter for full-term uncomplicated delivery Status: Acute OB - DS: Summary OB Procedures : None OB Procedures Intrapartum: Spontaneous Vag Delivery OB Procedures: : None Peripartum Data Laceration Description: Periurethral Episiotomy description: None Time Spent with Patient Time attestation: Total time spent providing and/or coordinating discharge services: DS: Data Data Completed and Pending Labs on day of discharge: Labs from last 24 hours 04/13/23 04/12/23 04/12/23 06:45 10:47 10:46 WBC 14.5 H RBC 3.84 L Hgb 9.7 L 11.1 L Hct 29.9 L 33.0 L MCV 85.9 MCH 28.9 MCHC 33.6 RDW 12.9 Plt Count 225 MPV 9.6 Immature Gran % (Auto) 0.6 H Neut % (Auto) 81.4 H Lymph % (Auto) 10.0 L [place] % (Auto) 7.7 Eos % (Auto) 0.2 Baso % (Auto) 0.1 L Lymph # (Auto) 1.44 [place] # (Auto) 1.1 H Eos # (Auto) 0.0 Baso # (Auto) 0.0 Abs Immat Gran (auto) 0.08 H Absolute Neuts (auto) 11.8 H Absolute Nucleated RBC 0.0 Nucleated RBC % 0.0 RPR Pending Blood Type O Positive Antibody Screen Negative Discharge Plan Discharge Discharging Clinician: Jeff Man Patient Disposition: Home, Self-Care Activity: as tolerated Diet: as tolerated Patient Instructions: Antibiotic Form Stand Alone Forms: General Discharge Information Follow-up/Referrals: Cathi Griffin MD [Physician] - 3 Weeks Discharge Medications: New ibuprofen 600 mg Tablet 600 mg PO Q6H PRN (Reason: Cramping) Qty: 30 0RF Continued sertraline [Zoloft] 25 mg tablet 25 mg PO DAILY Qty: 90 1RF vit-iron fum-folic ac 65 mg iron- 1 mg tablet 1 tablet PO DAILY Qty: 90 0RF Rx Instructions: can substitute any covered by patient's insurance Discontinued nifedipine 10 mg capsule 10 mg PO Q12H Qty: 30 0RF No Action valacyclovir [Valtrex] 500 mg tablet 500 mg PO Q12H Qty: 60 2RF Date of admission: 04/12/23 10:23 Primary Care Provider: PHYSICIAN,[employer]PARER Admitting Provider: Cathi Griffin Attending physician on admission: Cathi Griffin Condition: Stable
[2023-04-13 07:50] VITALS: BP 109/72; PULSE 72; RESP 18; TEMP 36.7
[2023-04-13] MEDS: IBUPROFEN 600 MG TABLET PO ×2 (08:05→18:57)
[2023-04-13] MEDS: MULTIVIT/MIN/PREN/FOL AC/IRON TABLET 1 TAB PO (08:05)
[2023-04-13] MEDS: POLYSACCHARIDE IRON COMPLEX 150 MG CAPSULE PO ×2 (08:05→17:05)
[2023-04-13] MEDS: DOCUSATE SODIUM 100 MG CAPSULE PO ×2 (08:05→17:05)
[2023-04-13 11:43] VITALS: BP 105/67; PULSE 81; RESP 16; TEMP 36.6; O2SAT 98
--- NOTE | 2023-04-13 15:23 | WPDANLDPN2 ---
Anes-Prog Note L&D Date/Time: 04/13/23 15:23 Comfortable throughout: labor and delivery Neuraxial method: epidural Epidural/Spinal procedure site: clean & non-tender Neuro status: Neuro function grossly intact. Cardiovascular status: normal Respiratory status: normal Airway patency: baseline Mental status: baseline Post-Op hydration status: normal Vital Signs: Last Vital Signs Temp 97.8 F 04/13/23 11:43 Pulse 81 04/13/23 11:43 Resp 16 04/13/23 11:43 BP 105/67 04/13/23 11:43 Pulse Ox 98 04/13/23 11:43 O2 Del Method Room Air 04/12/23 11:01 Pain score (VAS): 0 I/O: Intake & Output 04/13/23 04/13/23 04/13/23 00:59 07:59 15:59 Intake Total Output Total Balance Post-procedural complaints: none Patient feedback: Patient satisfied with anesthetic care.
[2023-04-13 18:40] VITALS: BP 117/80; PULSE 70; RESP 16; TEMP 36.4; O2SAT 100
[2023-04-14 07:25] VITALS: BP 116/66; PULSE 66; RESP 16; TEMP 37; O2SAT 99
[2023-04-14 08:14] LABS: Rapid Plasma Reagin Non-Reactive (NonReactive)
[2023-04-14] MEDS: DOCUSATE SODIUM 100 MG CAPSULE PO (08:35)
[2023-04-14] MEDS: MULTIVIT/MIN/PREN/FOL AC/IRON TABLET 1 TAB PO (08:35)
[2023-04-14] MEDS: POLYSACCHARIDE IRON COMPLEX 150 MG CAPSULE PO (08:35)
[2023-04-14] MEDS: SERTRALINE HCL 25 MG TABLET PO (08:35)
[2023-04-14] MEDS: IBUPROFEN 600 MG TABLET PO ×2 (08:39→15:00)
[2023-04-14] MEDS: WITCH HAZEL 40 PADS 1 PAD TOPICAL (15:00)
--- NOTE | 2023-04-14 15:22 | PC.NURSE ---
[id number] Introductions were made, then consulted with patient to assess needs related to . Mother led the conversation with her?plans to feed?her infant, the?experience so far and was eager to learn hand expression. Mother is able to express milk easily from her breast. Encouraged [id number] offering the breast to her often about every 2-3 hours. Resources provided for inpatient and outpatient services with the feeding sheet, mom/baby guide and name written on the white board. Mother voiced understanding of information and will call if there is a request for assistance. [id number] LC was called to consult with patient. Upon entering the room the Primary RN is assisting to latch to mother using the football positioning. Infant demonstrates effective and mother denies pain. detaches after 15 minutes and is placed [id number] on mother's chest. Once rooting is visualized infant is brought to the right breast using football positioning well aligned. Education given to mother of how to visualize suck/swallow ratios and listen for drinking at the breast. was able to maintain latch without discomfort to mother and demonstrate swallowing at the breast. Nipple care reviewed with optimal latch and good positioning. Reviewed good handwashing when or touching the breast/nipples to prevent infection. Resources used to facilitate learning were used with the visual handouts, tool, mom and baby guide. Mother voiced understanding of skin to skin, stimulating with massage touch, responsive feedings, hand expressed colostrum, talking to to encourage if it has been 2 -2.5 hours since the start of the last , to call if infant does not latch, or if there is discomfort with . Resources provided for inpatient/outpatient with feeding sheet and the mom/baby guide. Mother voiced understanding of information, demonstrated learning and will call if there is a request for assistance. Reported to the Primary RN.
[2023-04-17 08:33] VITALS: BP 135/75; PULSE 56; RESP 18; TEMP 37.1; O2SAT 100
== END 2023-04-14 15:00 | disposition home or self-care (01) | DRG 560 ==
LOC: ANHLDR 10:47 → ANHOB2 04-13 07:44 → ANHLDR 04-15 09:15 → ANHOB2 04-15 09:15
PROVIDERS: Admitting Provider Obstetrics & Gynecology; Visit Provider Obstetrics & Gynecology
DX: O98.52 Other viral diseases complicating childbirth (principal); Z37.0 Single live birth; B00.9 Herpesviral infection, unspecified; O71.82 Other specified trauma to perineum and vulva; Z3A.37 37 weeks gestation of pregnancy
CPT/HCPCS: 36415; 85014; 85018; 85025; 86592; 86850; 86900; 86901; A9270; J2590; J2795; J7120

== ENCOUNTER 2023-04-17 15:40 | Outpatient (CLI) | payer OTHER, SELFPAY ==
[2023-04-17 16:00] VITALS: BP 139/81; PULSE 57
[2023-04-17 16:10] LABS: Basophils Percent Auto 0.2 % (0.2-1.2); Eosinophils Absolute Auto 0.3 K/mm3 (0-0.3); Eosinophils Percent Auto 3.2 % (0-4.4); Hematocrit 30.9 % (37.0-47.0); Hemoglobin 9.9 g/dL (12.0-15.0); Immature Granulocyte Absolute 0.09 K/mm3 (0.00-0.031); Immature Granulocyte Percent A 0.9 % (0-0.5); Lymphocytes Percent Auto 27.1 % (18.3-44.2); Mean Corpuscular Hemoglobin 28.5 pg (26-34); Mean Platelet Volume 8.9 fl (7.4-10.4); Monocytes Absolute Auto 0.7 K/mm3 (0.1-0.6); Monocytes Percent Auto 7.2 % (2.6-8.5); Neutrophils Absolute Auto 6.1 K/mm3 (1.3-6.7); Neutrophils Percent Auto 61.4 % (45.5-73.1); Platelet Count Result 274 k/mm3 (150-375); Red Blood Count 3.47 M/mm3 (4.2-5.4); Red Cell Distribution Width 13.3 % (11.5-14.5)
[2023-04-17 16:16] VITALS: BP 99/73; PULSE 59
[2023-04-17 16:21] LABS: Alanine Aminotransferase 19 U/L (6-35); Albumin Level 3.1 g/dL (3.5-5.1); Alkaline Phosphatase 115 U/L (38-126); Anion Gap 5 mmol/L (8-16); Aspartate Amino Transferase 29 U/L (14-36); Bilirubin,Total 0.4 mg/dL (0.2-1.3); Blood Urea Nitrogen 5 mg/dL (7-17); Calcium 8.3 mg/dL (8.4-10.2); Carbon Dioxide 28 mmol/L (22-30); Chloride 108 mmol/L (98-107); Estimated Glomerular Filt Rate > 60; Glucose 75 mg/dL (65-110); Potassium 3.3 mmol/L (3.4-5.0); Sodium 141 mmol/L (137-145); Uric Acid 5.9 mg/dL (2.5-7.5)
[2023-04-17 16:26] VITALS: BP 137/86; PULSE 61
[2023-04-17 16:30] VITALS: BP 141/85; PULSE 58
--- NOTE | 2023-04-17 16:36 | PC.NURSE ---
1420--Cindy Peres CRNA at to evaluate pt's h/a.
--- NOTE | 2023-04-17 16:37 | PC.NURSE ---
1427--Report to Dr. Griffin re: v.s., lab results and anesthesia consult for h/a. Orders to DC with instructions for meds, hydration and comfort measures for h/a.
== END 2023-04-17 16:32 | disposition home or self-care (01) ==
LOC: ANHOBOP 15:43 → ANHOBPP 15:44
PROVIDERS: Visit Provider Obstetrics & Gynecology
DX: R51.9 Headache, unspecified (principal)
CPT/HCPCS: 36415; 80053; 84550; 85025; 99199